=== PATIENT | male | born 1980 | race Caucasian/White ===

== ENCOUNTER 2021-06-13 08:33 | Emergency (ER) | payer OTHER ==
[~2021-06-13 08:33] MED LIST: AUGMENTIN 875-1 EACH PO; BACLOFEN 20MG T20 MG PO; BUSPIRONE HCL15 MG PO; HYDRALAZINE25 MG PO; HYDROCODON-ACE1 EAC1 PO; LUNESTA2 MG PO; MEDROL 4MG DOSEP4 MG PO; OLANZAPINE PO; PRINIVIL20 MG PO; PROPRANOLOL HCL10 MG PO; ZYPREXA 5MG TABL5 MG PO
== END 2021-06-13 09:10 | disposition home or self-care (01) ==
LOC: FER 08:33
DX: F19.20 Other psychoactive substance dependence, uncomplicated (principal); F17.200 Nicotine dependence, unspecified, uncomplicated
CPT/HCPCS: 99283

== ENCOUNTER 2022-05-19 16:43 | Emergency (ER) | payer OTHER ==
[2022-05-19 17:47] LABS: BASOPHIL 0.4 % (0-2); EOSINOPHIL 1.8 % (0-5); HCT 40.4 % (42.0-52.0); HGB 14.6 g/dl (13.2-18.0); LYMPHOCYTE 26.5 % (15-48); MCH 34.4 pg (25.0-31.0); MCHC 36.1 g/dL (32.0-36.0); MCV 95.3 fL (78.0-100.0); MONOCYTE 9.1 % (0-12); MPV 8.5 fL (6.0-9.5); NEUTROPHIL 61.3 % (41-80); NRBC 0; PLT 243 K/uL (150-400); RBC 4.24 M/uL (4.70-6.00); RDW 12.3 % (11.5-14.0); WBC 9.2 K/uL (4.0-10.5)
[2022-05-19 18:15] LABS: BILIRUBIN NEGATIVE (NEGATIVE); BLOOD NEGATIVE Ery/uL (NEGATIVE); CLARITY CLEAR (CLEAR); COLOR YELLOW (YELLOW); GLUCOSE (U) NORMAL (NORMAL); LEUKOCYTES NEGATIVE Leu/uL (NEGATIVE); NITRITE NEGATIVE (NEGATIVE); PROTEIN NEGATIVE (NEGATIVE); SPECIFIC GRAVITY <=1.005 (1.001-1.030); UROBILINOGEN 0.2 mg/dL (0.2-1.0); pH 6.5 (5.0-9.0)
[2022-05-19 18:25] LABS: CREATININE 0.8 mg/dL (0.67-1.17); POTASSIUM 3.4 mmol/L (3.5-5.1)
== END 2022-05-19 23:05 | disposition left against medical advice (07) ==
LOC: FER 16:43
PROVIDERS: Nurse Practitioner Family
DX: R10.31 Right lower quadrant pain (principal); R10.32 Left lower quadrant pain; M25.551 Pain in right hip; M25.552 Pain in left hip; J44.9 Chronic obstructive pulmonary disease, unspecified; F17.210 Nicotine dependence, cigarettes, uncomplicated; Z53.29 Procedure and treatment not carried out because of patient's decision for other reasons; Z28.311 Partially vaccinated for COVID-19
CPT/HCPCS: 36415; 80048; 81003; 85025; 85379; J1100; J1885; J7030